=== PATIENT | male | born 1950 | race Caucasian/White ===

== ENCOUNTER → 2017-07-05 | Day surgery (SDC) | payer OTHER ==
[~2017-07-05] VITALS: Ht 177.8 cm; Wt 86.4 kg
[~2017-07-05] MED LIST: ACETAMINOPHEN 1000 MG/100 ML 100 ML IV SCH; ASPI81TA11 PO; BUPIVACAINE LIPOSOME PF 1.3% 20 ML VIAL ONE; BUPIVACAINE/EPINEPHRINE 0.25% PF 30 ML VIAL ONE; BUPIVACAINE/EPINEPHRINE 0.5% 50 ML VIAL ONE; CHLORHEXIDINE GLUCONATE 2 % 1 PACK (2 CLOTHS) TOPICAL PRN; FISH100020 PO; GLUC500C5 PO; INSULIN HUMAN REGULAR 1,000 UNITS/10 ML VIAL SQ PRN; KETOROLAC TROMETHAMINE 30 MG/ML (IVP) VIAL ONE; LACTATED RINGER'S 1000 ML IV PRN; LISI-515 PO; MAGN400T24 PO; METOPROLOL TARTRATE 25 MG TAB PO PRN; OMEP20TA PO; ONDANSETRON HCL 4 MG/2 ML VIAL IV PUSH ONE; POVIDONE IODINE 5% (ANTISEPSIS KIT) 4 APPLICATIONS EACH NARE PRN; PRAV40TA2 PO; PROPOFOL 200 MG/20 ML AMP IV ONE; SODIUM CHLORID 0.9% 500 ML IV PRN; TRIA1SPR5 EACH NARE; ceFAZolin 2 GM PREMIX 50 ML IV SCH
[2017-07-05 10:25] VITALS: TEMP 97.8
--- NOTE | 2017-07-05 11:25 | MP ---
cc: DK STALEY DATE OF SURGERY 07/05/2017 PREOPERATIVE DIAGNOSIS Right inguinal hernia. POSTOPERATIVE DIAGNOSIS Right inguinal hernia. PROCEDURE Repair of right inguinal hernia with ProGrip mesh. SURGEON MD Arash [employer] Andrea Cobos, MS III ANESTHESIA Local with IV sedation. OPERATIVE FINDINGS The patient was found to have a very large which completely obliterated the inguinal floor. There was no evidence of incarcerated viscera. The external oblique fascia had been grossly attenuated by the hernia rupturing through it. No other abnormalities were noted. OPERATIVE PROCEDURE The patient was brought to the operating room and after satisfactory sedation by Anesthesia was obtained, the abdomen was prepped and draped in the usual sterile fashion. 1.3% Exparel was used to infiltrate the skin for local anesthesia. A transverse right inguinal incision was made and carried down sharply through the subcutaneous tissue with the cautery being used for hemostasis. Incision was deepened to the external oblique fascia which was identified where the hernia sac was seen to be rupturing through it which left little or no fascia on the side of the inguinal ligament. The remainder of the fascia was opened using the cautery. The hernia sac was dissected free from the cord structures which were preserved. A Sandy drain was then used to encircle the cord structures and retract them laterally as the hernia sac was dissected free from the surrounding tissue. Once it had been circumferentially scored at its base. It was then reduced within the properitoneal space without problem. The superior transversalis fascia was then brought into close approximation to the inguinal ligament with interrupted 0 Vicryl sutures. Once the internal ring and the inguinal floor been recreated this fashion, a piece of ProGrip mesh was cut to the appropriate shape and secured anterior to the repair by pressing its posterior Vicryl hooks into the surrounding tissue. The mesh was further affixed to the pubis with a 0 Prolene. Once the mesh repair had been completed, it was checked and found to be intact. Hemostasis was checked for and found to be satisfactory. The testicle was returned to its [place] location by gentle traction on the scrotum. Further Exparel was injected into the surrounding tissues. The subcutaneous tissue was closed as a deep layer over the spermatic cord as the external oblique could not be used. The subcutaneous tissue was closed with interrupted 3-0 Vicryl sutures and the skin closed with interrupted 4-0 Monocryl subcuticular sutures. Steri-Strips were applied and the patient was then awakened and taken from the operating room, in satisfactory condition, having tolerated procedure without problem. Estimated blood loss was less than 5 mL. The instrument, sponge and needle counts were reported as being correct x2 at the end of the procedure. MD MICHELLE Garcia/GLADYS /10:27 AM /11:14 AM
[2017-07-05 11:35] VITALS: BP 118/60; PULSE 48; RESP 14; O2SAT 100
== END | disposition home or self-care (01) ==
LOC: PHSDC 06:28
PROVIDERS: ATTEND Surgery
DX: K40.90 Unilateral inguinal hernia, without obstruction or gangrene, not specified as recurrent (principal); I10 Essential (primary) hypertension; E78.5 Hyperlipidemia, unspecified
CPT/HCPCS: 00830; 49505; C1781; C9290; J0131; J0690; J1885; J2405; J3010; J7120